=== PATIENT | female | born 1970 | race Asian ===

== ENCOUNTER 2018-12-04 13:44 | Emergency (ER) | payer BC ==
[~2018-12-04] VITALS: Ht 154.9 cm; Wt 54.4 kg
[2018-12-04 13:49] VITALS: Ht 154.9 cm; Wt 54.4 kg
[2018-12-04 15:21] VITALS: BP 137/78
== END 2018-12-04 15:21 | disposition home or self-care (01) ==
LOC: ED 13:44
DX: F41.9 Anxiety disorder, unspecified (principal); I10 Essential (primary) hypertension; Z86.2 Personal history of diseases of the blood and blood-forming organs and certain disorders involving the immune mechanism